=== PATIENT | female | born 1960 | race Caucasian/White ===

== ENCOUNTER → 2018-03-23 | Outpatient (CLI) | payer BC | LOC: FIMAGING 15:01 | PROVIDERS: ATTEND Family Medicine | DX: Z12.31 Encounter for screening mammogram for malignant neoplasm of breast (principal) ==

== ENCOUNTER → 2018-07-04 | Outpatient (CLI) | payer BC | LOC: CIMAGING 14:16 | PROVIDERS: ATTEND Family Medicine | DX: M25.572 Pain in left ankle and joints of left foot (principal); M79.672 Pain in left foot; M77.32 Calcaneal spur, left foot; M20.12 Hallux valgus (acquired), left foot | CPT/HCPCS: 73610-PO; 73620-PO ==